=== PATIENT | male | born 1970 | race American Indian/Alaskan Native ===

== ENCOUNTER → 2021-12-20 06:51 | Outpatient (CLI) | payer MEDICAID, SELFPAY ==
[2021-12-20 08:27] LABS: Add Manual Diff / Slide Review NO; Basophils Absolute Auto 100 /uL (0-100); Basophils Percent Auto 1.3 % (0-2); Eosinophils Absolute Auto 200 /uL (0-450); Eosinophils Percent Auto 2.8 % (2-4); Hematocrit 41.6 % (41-53); Hemoglobin 14.3 g/dL (13.5-17.5); Lymphocytes Absolute Auto 1700 /uL (1100-4500); Lymphocytes Percent Auto 28.3 % (25-40); Mean Corpuscular HGB Conc 34.5 % (30-36); Mean Corpuscular Hemoglobin 30.5 PG (26-34); Mean Corpuscular Volume 88.4 fL (80-100); Monocytes Absolute Auto 500 /uL (0-900); Monocytes Percent Auto 8.4 % (3-14); Neutrophils Absolute Auto 3500 /uL (1500-7000); Neutrophils Percent Auto 59.2 % (50-75); Platelet Count 192 X10^3/uL (150-400)
[2021-12-20 08:35] LABS: Alanine Aminotransferase 25 IU/L (<50); Albumin 4.4 g/dL (3.5-5.0); Albumin Globulin Ratio 1.4 (1.0-2.8); Alkaline Phosphatase 84 U/L (38-126); Aspartate Aminotransferase 27 IU/L (17-59); BUN Creatinine Ratio 13.8 (6-22); Bilirubin Total 0.6 mg/dL (0.2-1.3); Blood Urea Nitrogen 12 mg/dL (9-20); Calcium 8.8 mg/dL (8.4-10.2); Carbon Dioxide 26 mmol/L (22-32); Chloride 106 mmol/L (98-107); Cholesterol 166 mg/dL (140-199); Estimated Glomerular Filt Rate > 60 mL/min (>60); Globulin 3.2 g/dL (1.7-4.1); Glucose 108 mg/dL (70-100); HDL Cholesterol 35 mg/dL (40-60); HEMOLYSIS < 15 (0-50); LDL Cholesterol Calculated 92 mg/dL (<100); Magnesium 2.2 mg/dL (1.6-2.3); Potassium 4.4 mmol/L (3.4-5.1); Sodium 139 mmol/L (137-145); Total Protein 7.6 g/dL (6.3-8.2); Triglycerides 197 mg/dL (35-150)
[2021-12-20 09:04] LABS: TSH w/ Reflex to FT4 0.77 uIU/mL (0.47-4.68)
== END ==
PROVIDERS: PCP Physician Assistant; Referring Provider Physician Assistant; Visit Provider Physician Assistant
DX: R00.2 Palpitations (principal); E78.5 Hyperlipidemia, unspecified
CPT/HCPCS: 36415; 80053; 80061; 83735; 84443; 85025

== ENCOUNTER 2022-04-26 13:48 | Emergency (ER) | payer OTHER, SELFPAY ==
[2022-04-26 14:12] VITALS: BP 135/77; PULSE 75; RESP 18; TEMP 36.6; O2SAT 99; BMI 35.3
--- NOTE | 2022-04-26 20:10 | ED_ITS ---
HPI - URI/Sore Throat <JOS Baldwin - Last Filed: 04/26/22 20:13> General Chief Complaint: Upper Respiratory Symptoms Stated Complaint: Burning in Sinus, congestion Time Seen by Provider: 04/26/22 16:01 Source: patient Mode of arrival: Ambulatory History of Present Illness HPI Narrative: This is a 51-year-old male presents to the emergency department complaining of sinus tenderness, congestion, and states that this is most likely a sinus infection and he is had these symptoms for the last 10 days. He denies fever and chills but states that he is sinuses are congested and he has facial pain. He is not a smoker, states he has not tried Flonase or other medications. Denies any cough or productive cough, denies fever or chills. Related Data Previous Rx's Medication Instructions Recorded amoxicillin 875 mg-potassium 1 tab PO BID 7 days #14 tabs 04/26/22 clavulanate 125 mg tablet fluticasone propionate 50 1 spray intranasal DAILY PRN nasal 04/26/22 mcg/actuation nasal congestion #16 grams spray,suspension Allergies Allergy/AdvReac Type Severity Reaction Status Date / Time No Known Drug Allergies Allergy Unverified 11/09/21 12:25 Review of Systems <JOS Baldwin - Last Filed: 04/26/22 20:13> Review of Systems Narrative: Review of systems is negative for acute abnormalities unless otherwise noted in HPI Patient History <JOS Baldwin - Last Filed: 04/26/22 20:13> Social History Smoking Status: Current some day smoker Smoking Status: Current some day smoker tobacco type: cigarettes alcohol intake frequency: holidays/special occasions only Exam <JOS Baldwin - Last Filed: 04/26/22 20:13> Narrative Exam Narrative: Reviewed vitals signs and nursing notes. General: cooperative, comfortable, in no acute distress, well groomed HEENT: symmetrical facial expressions, moist mucous membranes, nares are patent, tenderness over frontal and maxillary sinuses, posterior pharynx without erythema, uvula is midline, Cardiovascular: regular rate and rhythm, no peripheral edema, warm extremities Respiratory: normal effort, able to speak in complete sentences, without wheezing, stridor, or abnormal breath sounds. No retractions or tachypnea. Skin: brisk capillary refill, without pallor or erythema Neuro: normal speech and cognition, A&O x3, ambulatory, clear speech Psych: mental status is grossly normal, congruent mood, normal affect, pleasant and cooperative Initial Vital Signs Initial Vital Signs: Vital Signs Temperature 97.8 F 04/26/22 14:12 Pulse Rate 75 04/26/22 14:12 Respiratory Rate 18 04/26/22 14:12 Blood Pressure 135/77 04/26/22 14:12 Pulse Oximetry 99 04/26/22 14:12 Oxygen Delivery Method 04/26/22 14:12 <Carie Tomlinson MD - Last Filed: 04/29/22 08:34> Initial Vital Signs Initial Vital Signs: Vital Signs Temperature 97.8 F 04/26/22 14:12 Pulse Rate 75 04/26/22 14:12 Respiratory Rate 18 04/26/22 14:12 Blood Pressure 135/77 04/26/22 14:12 Pulse Oximetry 99 04/26/22 14:12 Oxygen Delivery Method 04/26/22 14:12 Course <JOS Baldwin - Last Filed: 04/26/22 20:13> Vital Signs Vital signs: Vital Signs - 8 hr 04/26/22 14:12 Temperature 97.8 F Pulse Rate 75 Respiratory Rate 18 Blood Pressure 135/77 Pulse Oximetry 99 Oxygen Delivery Method Room Air <Carie Tomlinson MD - Last Filed: 04/29/22 08:34> Vital Signs Vital signs: Vital Signs - 8 hr 04/26/22 14:12 Temperature 97.8 F Pulse Rate 75 Respiratory Rate 18 Blood Pressure 135/77 Pulse Oximetry 99 Oxygen Delivery Method Room Air MDM - URI/Sore Throat <JOS Baldwin - Last Filed: 04/26/22 20:13> MDM Narrative Medical decision making narrative: This is a 51-year-old male presents to the emergency department complaining of 10 days congestion, now states that he has sinus pain. He had tenderness over his maxillary and frontal sinuses, nares are patent, patient has history of sinusitis. He was prescribed fluticasone and Augmentin for sinusitis. Encourage patient to stay hydrated, use ibuprofen or Tylenol as needed for pain, saline nasal spray, encouraged him to follow-up with primary care provider or return to the emergency department if he does not have any improvement. Patient is appropriate and amenable to discharge home. Vital signs are stable on repeat examination is unremarkable. Patient has been informed of results. Patient has been given strict return to ER precautions for any new or worsening symptoms. Patient understands to follow up closely with outpatient providers as instructed. Patient understands plan and agrees to discharge home. All que stions and concerns answered at this time. #331 & 332: Antibiotic use with Sinusitis *if the second, third, or fourth prompt is selected, only then should the clinician see the sub-prompts addressing amoxicillin [] The patient has sinusitis and antibiotics are not indicated/not prescribed at this time. [SATISFIES MIPS PERFORMANCE] [x] The patient has sinusitis with symptom onset greater than 10 days ago and the patient was prescribed antibiotics. [SATISFIES MIPS PERFORMANCE] [x] Patient was prescribed an amoxicillin-based antibiotic. [] Patient was prescribed a non amoxicillin-based antibiotic because [] (ex. allergy, intolerance, secondary infection like Acute Pharyngitis, Cellulitis, UTI) [] Patient was prescribed a non amoxicillin-based antibiotic. [] The patient has sinusitis and was prescribed antibiotics because [] (ex. patient?s symptoms worsened after initial improvement, patient has secondary infection, patient is immunocompromised) [MIPS PERFORMANCE EXCEPTION/EXCLUSION] [] Patient was prescribed an amoxicillin-based antibiotic. [] Patient was prescribed a non amoxicillin-based antibiotic because [] (ex. allergy, intolerance, secondary infection like Acute Pharyngitis, Cellulitis, UTI) [] Patient was prescribed a non amoxicillin-based antibiotic. [] The patient has sinusitis with symptom onset less than or equal to 10 ago days and antibiotics WERE prescribed. [DOES NOT SATISFY MIPS PERFORMANCE] [] Patient was prescribed an amoxicillin-based antibiotic. [] Patient was prescribed a non amoxicillin-based antibiotic because [] (ex. allergy, intolerance, secondary infection like Acute Pharyngitis, Cellulitis, UTI) [] Patient was prescribed a non amoxicillin-based antibiotic. Discharge Plan Departure Patient Disposition: Home Clinical Impression: Sinusitis Qualifiers: Sinusitis location: frontal Chronicity: acute Recurrence: non-recurrent Qualified Code(s): J01.10 - Acute frontal sinusitis, unspecified Instructions: Sinusitis Activity Restrictions/Additional Instructions: *You have been diagnosed with sinusitis. Please take these antibiotics twice a day for the next 7 days, you may use saline nasal spray for hydration, 4 Flonase as needed to help reduce edema in the sinus cavity, NyQuil at nighttime to help sleep, and please stay hydrated. Follow-up with your primary care provider if you have ongoing symptoms. Return for any worsening of your condition. *What to do: *Please continue to take your regular medications as directed. [ x] New medication prescriptions sent to your pharmacy: [ [facility]] [ ] New medication written as a paper prescription [ ] No new medications given *Please follow up with your primary care provider in 2-3 days, call for an appointment. Let them know you were seen in the Emergency Department and that we asked that you be seen for follow-up. We will electronically transmit a record of today's note if your PCP is in our system *If you do not have a primary care provider please contact [phone] to establish care with one of [facility] primary care providers. *Return to Emergency Department if you should have any new, worsening, or concerning symptoms, such as [fever greater than 101F, chills, worsening pain, persistent vomiting or other bothersome symptoms]. Prescriptions: New amoxicillin-pot clavulanate 875-125 mg tablet 1 tab PO BID 7 Days Qty: 14 0RF fluticasone propionate 50 mcg/actuation spray,suspension 1 spray intranasal DAILY PRN (Reason: nasal congestion) Qty: 16 0RF Rx Instructions: administer into each nostril Referrals: Denys Escobedo, [Primary Care Provider] - Visit Report Forms: Patient Portal/API <Carie Tomlinson MD - Last Filed: 04/29/22 08:34> Cosign ED Attending Cosadanature Attestation: I was immediately available in the department for consultation throughout this patient's visit. I agree with documentation as above. Carie Tomlinson MD
== END 2022-04-26 16:24 | disposition home or self-care (01) ==
PROVIDERS: Emergency Provider Nurse Practitioner Critical Care Medicine; PCP Family Medicine
DX: J01.10 Acute frontal sinusitis, unspecified (principal)
CPT/HCPCS: 87635; 99281; C9803

== ENCOUNTER → 2022-07-19 16:00 | Outpatient (CLI) | payer OTHER, SELFPAY ==
[2022-07-19 20:11] LABS: COVID19 -Nasal RAPID POSITIVE (Negative)
== END ==
PROVIDERS: PCP Family Medicine; Referring Provider Family Medicine; Visit Provider Family Medicine
DX: U07.1 COVID-19 (principal)
CPT/HCPCS: 87635; C9803

== ENCOUNTER → 2022-08-24 07:06 | Outpatient (CLI) | payer MEDICAID, SELFPAY ==
[2022-08-24 08:41] LABS: Alanine Aminotransferase 29 IU/L (<50); Alkaline Phosphatase 74 U/L (38-126); Aspartate Aminotransferase 26 IU/L (17-59); BUN Creatinine Ratio 19.5 (6-22); Bilirubin Total 0.7 mg/dL (0.2-1.3); Blood Urea Nitrogen 17 mg/dL (9-20); Calcium 8.9 mg/dL (8.4-10.2); Carbon Dioxide 25 mmol/L (22-32); Chloride 105 mmol/L (98-107); Cholesterol 172 mg/dL (140-199); Estimated Glomerular Filt Rate > 60 mL/min (>60); Glucose 98 mg/dL (70-100); HDL Cholesterol 31 mg/dL (40-60); HEMOLYSIS < 15 (0-50); LDL Cholesterol Calculated 96 mg/dL (<100); Magnesium 1.9 mg/dL (1.6-2.3); Potassium 4.6 mmol/L (3.4-5.1); Sodium 140 mmol/L (137-145); Total Protein 7.2 g/dL (6.3-8.2); Triglycerides 223 mg/dL (35-150)
[2022-08-24 09:15] LABS: TSH w/ Reflex to FT4 1.05 uIU/mL (0.47-4.68)
[2022-08-24 12:34] LABS: Creatinine Urine Random 96.5 mg/dL
[2022-08-24 13:58] LABS: Microalbumin Urine Random < 0.6 mg/dL (0-1.6)
[2022-08-25 17:06] LABS: Albumin 4.3 g/dL (3.5-5.0); Albumin Globulin Ratio 1.5 (1.0-2.8); Globulin 2.9 g/dL (1.7-4.1)
== END ==
PROVIDERS: PCP Family Medicine; Referring Provider Family Medicine; Visit Provider Family Medicine
DX: R00.2 Palpitations (principal); Z13.29 Encounter for screening for other suspected endocrine disorder; I10 Essential (primary) hypertension; E78.5 Hyperlipidemia, unspecified
CPT/HCPCS: 36415; 80053; 80061; 82043; 82570; 83735; 84443

== ENCOUNTER 2022-12-19 13:27 | Day surgery (SDC) | payer OTHER, SELFPAY ==
[2022-12-19 13:47] VITALS: BP 120/73; PULSE 74; RESP 17; TEMP 36; O2SAT 98
[2022-12-19] MEDS: LACTATED RINGERS 1,000 ML 120 ML IV (13:53)
--- NOTE | 2022-12-19 14:38 | P.HP_ITS ---
History of Present Illness History of Present Illness Date Patient Seen: 12/19/22 Time Patient Seen: 14:38 Chief complaint: Screening Colonoscopy Narrative: The patient presents for colorectal screening. They have never had any previous examination for such. No personal or family history of colon cancer. On further history denies any recent gastrointestinal symptoms. No nausea, vomiting, abdominal pain, loss of appetite, unexplained weight loss, change in bowel habits, or blood per rectum. [facility] Medical History (Updated 10/29/22 @ 19:43 by Steffi Leggett) Ankle pain (~1993) Foot pain (~1991) Hearing loss History of femur fracture Hypertension Kidney stones (~2014) Shoulder pain (~1992) Tinnitus (~1993) Vertigo (~2004) Vision disorder Family History (Updated 10/29/22 @ 19:46 by Steffi Leggett) Mother Diabetes mellitus Grandfather History of emphysema Grandmother Diabetes mellitus History of heart disease Grandmother Diabetes mellitus Social History household members: significant other Smoking Status: Current some day smoker alcohol intake: current Meds Home Medications and Allergies Home Medications Medication Instructions Recorded Confirmed Type lisinopril 20 mg tablet 20 mg PO DAILY #90 tabs 10/13/22 12/19/22 Rx Allergies Allergy/AdvReac Type Severity Reaction Status Date / Time No Known Drug Allergies Allergy Verified 12/19/22 13:39 Exam Vital Signs (past 8 hours): - 12/19/22 13:47 Temperature 96.8 F L Pulse Rate 74 Respiratory Rate 17 Blood Pressure 120/73 Pulse Oximetry 98 Oxygen Delivery Method Room Air Oxygen Delivery Method Room Air Narrative Exam Narrative: General adult man alert oriented no acute distress Abdomen soft nontender nondistended Assessment & Plan Assessment & Plan narrative: The patient requires colorectal screening and colonoscopy is recommended. Technical details were discussed. Risks, benefits, alternatives explained. Risks including but not limited to myocardial infarction, aspiration, bleeding, pain, missed lesion, incomplete examination, need for further radiographic studies, colonic perforation, and need for major abdominal surgery were discussed. All questions were answered to their satisfaction, and they are in agreement with this plan.
[2022-12-19 15:01] VITALS: BP 126/67; PULSE 74; RESP 18; TEMP 36.4; O2SAT 96
[2022-12-19 15:06] VITALS: BP 128/82; PULSE 72; RESP 10; O2SAT 97
--- NOTE | 2022-12-19 15:06 | PM.OP.COLON ---
Operative Date/Time/Diagnoses Date of procedure: 12/19/22 Time of procedure: 15:06 Pre-op diagnosis: Colorectal screening Post-op diagnosis: same Procedure & Clinicians Study performed: Colonoscopy Same procedure as scheduled: Yes Indications: Colorectal screening Surgeon: Balwinder Boogie Procedure Notes Procedure in detail: The history and physical was performed/updated and the patient is ASA class is 2. The procedure was discussed in detail with the patient. Potential risks complications including infection, bleeding, missed diagnosis, perforation, need for surgery, and were explained. Their questions were answered and informed consent was obtained. Patient was brought to the procedure room and placed standard monitoring equipment. The patient's vital signs were monitored continuously throughout the entire procedure. Prior to starting time-out was performed. The patient was placed in the left lateral recumbent position. Procedural sedation was administered by anesthesia. Examination began with a thorough inspection of the perianal area there was no evidence of fissures, fistulae, external hemorrhoids or cutaneous malignancy. The colonoscopy scope was then placed into the anal canal and was advanced to the cecum, which was identified by the ileocecal valve, the appendiceal orifice and the confluence of the taenia. The scope was then slowly withdrawn examining colon thoroughly in all directions, irrigating it of any residual stool. Unremarkable colonoscopy. No masses polyps or inflammation. The patient tolerated the procedure well. They will be discharged once criteria are met. The prep was of good/excellent quality. The withdrawl time was 6 minutes. Specimen(s): none sent Impression: Normal colonoscopy Post-procedure Recommendations: Colonoscopy in 10 years and High fiber diet Disposition: same day surgery
[2022-12-19 15:07] VITALS: BP 121/85; PULSE 66; RESP 11; TEMP 36.1; O2SAT 96
== END 2022-12-19 15:24 | disposition home or self-care (01) ==
PROVIDERS: PCP Family Medicine; Referring Provider Surgery; Visit Provider Surgery
PROC: 0DJD8ZZ Inspection of Lower Intestinal Tract, Via Natural or Artificial Opening Endoscopic (ICD-10-PCS; CPT 45378; principal; 2022-12-19 14:30)
DX: Z12.11 Encounter for screening for malignant neoplasm of colon (principal)
CPT/HCPCS: 45378; J2704

== ENCOUNTER 2024-03-14 07:10 | Emergency (ER) | payer OTHER, SELFPAY ==
[2024-03-14 07:22] VITALS: BP 138/82; PULSE 64; RESP 16; TEMP 36.4; O2SAT 98; BMI 35.9
--- NOTE | 2024-03-14 07:27 | ED_ITS ---
HPI - General Adult General Chief complaint: Upper Respiratory Symptoms Stated complaint: resp. infection Time Seen by Provider: 03/14/24 07:21 Source: patient Mode of arrival: Ambulatory Limitations: no limitations History of Present Illness HPI narrative: Otherwise healthy 53-year-old male who is here for evaluation of approximately 10-14 days of sinus congestion, nonproductive cough, runny nose. He is tried [id number] medications with minimal if any improvement. No fevers. Related Data Previous Rx's Medication Instructions Recorded lisinopril 20 mg tablet 20 mg PO DAILY #90 tabs 10/30/23 Allergies Allergy/AdvReac Type Severity Reaction Status Date / Time No Known Drug Allergies Allergy Verified 11/23/23 16:05 Review of Systems ENT Ears, Nose, Mouth, and Throat: Reports system reviewed and no additional compl aints, except as documented Respiratory Respiratory: Reports system reviewed and no additional complaints, except as documented Allergic/Immunologic Allergic/Immunologic: Reports system reviewed and no additional complaints, except as documented Patient History Medical History History of nephrolithiasis Tobacco use disorder Encounter for well adult exam without abnormal findings Vision disorder Hearing loss Shoulder pain (~1992) Foot pain (~1991) Ankle pain (~1993) Vertigo (~2004) Kidney stones (~2014) History of femur fracture Tinnitus (~1993) Hypertension Family History (Updated 10/29/22 @ 19:46 by Steffi Leggett) Mother Diabetes mellitus Grandfather History of emphysema Grandmother Diabetes mellitus History of heart disease Grandmother Diabetes mellitus Social History household members: significant other Smoking Status: Current some day smoker alcohol intake: current Smoking Status: Current some day smoker tobacco type: cigarettes alcohol intake frequency: a few times a week Exam Initial Vital Signs Initial Vital Signs: Vital Signs Temperature 97.6 F 03/14/24 07:22 Pulse Rate 64 03/14/24 07:22 Respiratory Rate 16 03/14/24 07:22 Blood Pressure 138/82 03/14/24 07:22 Pulse Oximetry 98 03/14/24 07:22 Oxygen Delivery Method Room Air 03/14/24 07:22 HENMT Head: normal to inspection and normocephalic Mouth: moist mucous membranes Throat: posterior oropharynx normal Resp Effort & Inspection: normal respiratory effort Auscultation: clear to auscultation bilaterally Cardio Rate: regular rate Skin General: no rashes or lesions noted Neuro General: patient alert, patient awake and moves all extremities Extrem General: capillary refill normal Course Orders Ordered: ED Orders 03/14/24 07:32 XR chest 1V Stat Vital Signs Vital signs: Vital Signs - 8 hr 03/14/24 07:22 Temperature 97.6 F Pulse Rate 64 Respiratory Rate 16 Blood Pressure 138/82 Pulse Oximetry 98 Oxygen Delivery Method Room Air Medical Decision Making Imaging Data Chest x-ray: Radiologist's Impression: PROCEDURE: XR CHEST 1V INDICATIONS: evl for PNA TECHNIQUE: One view of the chest was acquired. COMPARISON: None. FINDINGS: Surgical changes and devices: None. Lungs and pleura: Lungs are clear. No pleural effusions or pneumothorax. Mediastinum: Mediastinal contours appear normal. Heart size is normal. Bones and chest wall: No suspicious bony lesions. Overlying soft tissues appear unremarkable. IMPRESSION: No acute cardiopulmonary abnormality is seen. MDM Narrative Medical decision making narrative: No signs of pneumonia on the chest x-ray. Has an obvious upper respiratory infection that is viral in origin. Low suspicion for bacterial cause. No indication for antibiotics. Discuss this with the patient. Discussed treatment that he could try at home. He was given return precautions. He expressed understanding and agreement. Discharge Plan Departure Patient Disposition: Home Clinical Impression: Upper respiratory infection Instructions: DI for Viral Upper Respiratory Infection -- Adult Activity Restrictions/Additional Instructions: You can continue with the [id number] cough and cold preparations. You can also consider taking a antihistamine such as Claritin or Zyrtec but you can also purchase [id number]. Return to the emergency department for new or worse dennise symptoms. Prescriptions: No Action lisinopril 20 mg tablet 20 mg PO DAILY Qty: 90 3RF Referrals: Denys Escobedo DO [Primary Care Provider] - Stand Alone Forms: Patient Portal/API
--- NOTE | 2024-03-14 07:32 | DI.RAD.S_ITS ---
PROCEDURE: XR CHEST 1V INDICATIONS: evl for PNA TECHNIQUE: One view of the chest was acquired. COMPARISON: None. FINDINGS: Surgical changes and devices: None. Lungs and pleura: Lungs are clear. No pleural effusions or pneumothorax. Mediastinum: Mediastinal contours appear normal. Heart size is normal. Bones and chest wall: No suspicious bony lesions. Overlying soft tissues appear unremarkable. IMPRESSION: No acute cardiopulmonary abnormality is seen. Dictated by: David Torres M.D. on 03/14/2024 at 8:23 Approved by: David Torres M.D. on 03/14/2024 at 8:24
== END 2024-03-14 08:39 | disposition home or self-care (01) ==
PROVIDERS: Emergency Provider Emergency Medicine; PCP Family Medicine
DX: J06.9 Acute upper respiratory infection, unspecified (principal)
CPT/HCPCS: 71045; 99283

== ENCOUNTER 2024-03-24 19:10 | Emergency (ER) | payer OTHER, SELFPAY ==
[2024-03-24 19:24] VITALS: BP 136/76; PULSE 79; RESP 18; TEMP 36.4; O2SAT 96; BMI 35.9
--- NOTE | 2024-03-24 19:30 | DI.RAD.S_ITS ---
PROCEDURE: XR CHEST 2V INDICATIONS: cough TECHNIQUE: 2 views of the chest were acquired. COMPARISON: [facility], CR, XR CHEST 1V, 03/14/2024, 7:44. FINDINGS: Surgical changes and devices: None. Lungs and pleura: Lungs are clear. No pleural effusions or pneumothorax. Mediastinum: Mediastinal contours are normal. Heart size is normal. Bones and chest wall: No suspicious bony abnormalities. Soft tissues appear unremarkable. IMPRESSION: No acute pulmonary process. Dictated by: Rain Craig M.D. on 03/24/2024 at 20:20 Approved by: Rain Craig M.D. on 03/24/2024 at 20:21
== END 2024-03-24 22:42 | disposition left against medical advice (07) ==
PROVIDERS: Emergency Provider Emergency Medicine; PCP Family Medicine
DX: R05.9 Cough, unspecified (principal)
CPT/HCPCS: 71046; 99281

== ENCOUNTER → 2024-12-04 07:52 | Outpatient (CLI) | payer OTHER, SELFPAY ==
[2024-12-04 09:22] LABS: Creatinine Urine Random 119.29 mg/dL
[2024-12-04 09:28] LABS: Microalbumin Urine Random 5.5 mg/dL (0-1.6)
[2024-12-04 09:38] LABS: Alanine Aminotransferase 30 IU/L (<50); Albumin 4.3 g/dL (3.5-5.0); Albumin Globulin Ratio 1.9 (1.0-2.8); Alkaline Phosphatase 74 U/L (38-126); Aspartate Aminotransferase 25 IU/L (17-59); Bilirubin Total 0.6 mg/dL (0.2-1.3); Blood Urea Nitrogen 15 mg/dL (9-20); Carbon Dioxide 22 mmol/L (22-32); Chloride 107 mmol/L (98-107); Cholesterol 141 mg/dL (140-199); Estimated Glomerular Filt Rate > 60 mL/min (>60); Globulin 2.3 g/dL (1.7-4.1); Glucose 101 mg/dL (70-99); HDL Cholesterol 27 mg/dL (40-60); HEMOLYSIS < 15 (0-50); LDL Cholesterol Calculated 72 mg/dL (<100); Sodium 137 mmol/L (137-145); Total Protein 6.6 g/dL (6.3-8.2); Triglycerides 208 mg/dL (35-150)
== END ==
LOC: LAB 07:53
PROVIDERS: PCP Family Medicine; Referring Provider Family Medicine; Visit Provider Family Medicine
DX: I10 Essential (primary) hypertension (principal); E78.00 Pure hypercholesterolemia, unspecified; Z87.442 Personal history of urinary calculi
CPT/HCPCS: 36415; 80053; 80061; 82043; 82570

== ENCOUNTER 2025-02-24 12:24 | Emergency (ER) | payer OTHER, SELFPAY ==
[2025-02-24 12:29] VITALS: BP 133/79; PULSE 72; RESP 16; TEMP 36.6; O2SAT 97; BMI 36.6
--- NOTE | 2025-02-24 13:11 | DI.RAD.S_ITS ---
PROCEDURE: XR FOOT LT MIN 3V INDICATIONS: ?rfx, ?gout TECHNIQUE: 3 views of the foot were acquired. COMPARISON: None. FINDINGS: Bones: No fractures or dislocations. No suspicious bony lesions. Focal degenerative change can be seen involving the 1st metatarsophalangeal joint, with focal joint space narrowing, with associated subchondral sclerosis and osteophyte formation. Milder degenerative changes are seen elsewhere. Plantar and Achilles calcaneal spurs are seen. . Incidental note is made of an accessory ossicle, an os peroneum. Soft tissues: Mild soft tissue swelling is seen distally and medially. IMPRESSION: Focal degenerative change can be seen involving the 1st metatarsophalangeal joint, with milder degenerative changes seen elsewhere Dictated by: Ronaldo Cuello M.D. on 02/24/2025 at 12:50 Approved by: Ronaldo Cuello M.D. on 02/24/2025 at 12:51
[2025-02-24 14:17] VITALS: BP 132/66; PULSE 62; RESP 14; O2SAT 98
--- NOTE | 2025-02-24 18:19 | ED.EXTPRO ---
HPI - Extremity Problem <Gorge Alexander PA-C - Last Filed: 02/24/25 18:23> General Chief complaint: Extremity Problem,Nontraumatic Stated complaint: Lt foot pain, x3days Time Seen by Provider: 02/24/25 12:41 Source: patient Mode of arrival: Ambulatory History of Present Illness HPI Narrative: 54-year-old male presents to the ED with 3 days of pain to the base of the left big toe. No fever, chills, trauma. No numbness, tingling, weakness. No prior history of gout. Patient is limping due to pain, however is able to bear weight and walk. Related Data Previous Rx's ?Medication ?Instructions ?Recorded lisinopril 10 mg tablet 10 mg PO DAILY #90 tabs 12/04/24 bupropion HCl 150 mg 24 hr tablet, 150 mg PO QAM #90 tabs 12/19/24 extended release bupropion HCl 75 mg tablet 75 mg PO DAILY #7 tabs 12/19/24 methylprednisolone 4 mg tablets in See Rx Instructions PO .COMPLEX 02/24/25 a dose pack (Medrol (Tim)) #21 ea Allergies Allergy/AdvReac Type Severity Reaction Status Date / Time No Known Drug Allergies Allergy Verified 12/19/24 15:42 Review of Systems <Gorge Alexander PA-C - Last Filed: 02/24/25 18:23> Constitutional Constitutional: Denies chills, Denies fatigue, Denies fever(s), Denies frequent falls, Denies lethargy and Denies weakness Eyes Eyes: Denies change in vision, Denies eye discharge, Denies irritation and Denies loss of vision ENT Ears, Nose, Mouth, and Throat: Denies change in voice, Denies dizziness, Denies neck pain, Denies sore throat and Denies throat swelling Cardiovascular Cardiovascular: Denies chest pain, Denies irregular heart rhythm, Denies lightheadedness, Denies palpitations, Denies dyspnea, Denies dyspnea on exertion and Denies orthopnea Respiratory Respiratory: Denies cough, Denies dyspnea, Denies dyspnea on exertion and Denies wheezing Gastrointestinal Gastrointestinal: Denies abdominal pain, Denies change in bowel habits, Denies diarrhea, Denies nausea and Denies vomiting Musculoskeletal Musculoskeletal: Denies neck pain and Denies numbness Comments: Left big toe pain Integumentary/Breasts Skin/Breast: Denies pruritus, Denies erythema, Denies rash and Denies wounds Neurologic Neurologic: Denies behavioral changes, Denies confusion, Denies dizziness, Denies frequent falls, Denies loss of vision, Denies numbness and Denies weakness Psychiatric Psychiatric: Denies anxiety, Denies behavioral changes, Denies confusion, Denies depression, Denies homicidal ideation and Denies suicidal ideation Endocrine Endocrine: Denies fatigue, Denies flushing and Denies palpitations Hematologic/Lymphatic Hematologic/Lymphatic: Denies easy bruising Allergic/Immunologic Allergic/Immunologic: Denies urticaria, Denies throat swelling and Denies wheezing Patient History <Gorge Alexander PA-C - Last Filed: 02/24/25 18:23> Medical History Prediabetes Acute maxillary sinusitis History of nephrolithiasis Tobacco use disorder Encounter for well adult exam without abnormal findings Vision disorder Hearing loss Shoulder pain (~1992) Foot pain (~1991) Ankle pain (~1993) Vertigo (~2004) Kidney stones (~2014) History of femur fracture Tinnitus (~1993) Hypertension Family History Mother Diabetes mellitus Grandfather History of emphysema Grandmother Diabetes mellitus History of heart disease Grandmother Diabetes mellitus Social History household members: significant other Smoking Status: Current every day smoker alcohol intake: current Smoking Status: Current every day smoker tobacco type: cigarettes alcohol intake frequency: a few times a week Exam <Gorge Alexander PA-C - Last Filed: 02/24/25 18:23> Narrative Exam Narrative: Const General:?cooperative, healthy appearing and comfortable [facility] Head:?normal to inspection Ears:?hearing grossly normal bilaterally Nose:?external nose normal Face and sinus:?normal facial exam and sinuses nontender Mouth:?oral mucosae normal Throat:?posterior oropharynx normal Eyes General:?appearance normal, both eyes and all related structures Neck Neck:?normal visual inspection and no lymphadenopathy noted Resp Effort & Inspection:?normal respiratory effort Auscultation:?clear to auscultation bilaterally Cardio Rate:?regular rate Rhythm:?regular rhythm Musculoskeletal Base of left big toe appears erythematous, swollen, warm, tender to touch. Skin is intact. Patient is neurovascularly intact. Able to bear weight and walk, although limping due to pain Neuro General:?patient alert, patient awake and patient oriented x3 Initial Vital Signs Initial Vital Signs: Vital Signs Temperature 97.8 F 02/24/25 12:29 Pulse Rate 72 02/24/25 12:29 Respiratory Rate 16 02/24/25 12:29 Blood Pressure 133/79 02/24/25 12:29 Pulse Oximetry 97 02/24/25 12:29 Oxygen Delivery Method Room Air 02/24/25 12:29 <Johnson Sumner MD - Last Filed: 02/24/25 19:15> Initial Vital Signs Initial Vital Signs: Vital Signs Temperature 97.8 F 02/24/25 12:29 Pulse Rate 72 02/24/25 12:29 Respiratory Rate 16 02/24/25 12:29 Blood Pressure 133/79 02/24/25 12:29 Pulse Oximetry 97 02/24/25 12:29 Oxygen Delivery Method Room Air 02/24/25 12:29 Course <Gorge Alexander PA-C - Last Filed: 02/24/25 18:23> Orders Ordered: ED Orders 02/24/25 13:11 XR foot LT min 3V Stat Vital Signs Vital signs: Vital Signs - 8 hr 02/24/25 12:29 02/24/25 14:17 Temperature 97.8 F Pulse Rate 72 62 Respiratory Rate 16 14 Blood Pressure 133/79 132/66 Pulse Oximetry 97 98 Oxygen Delivery Method Room Air Room Air <Johnson Sumner MD - Last Filed: 02/24/25 19:15> Orders Ordered: ED Orders 02/24/25 13:11 XR foot LT min 3V Stat Vital Signs Vital signs: Vital Signs - 8 hr 02/24/25 12:29 02/24/25 14:17 Temperature 97.8 F Pulse Rate 72 62 Respiratory Rate 16 14 Blood Pressure 133/79 132/66 Pulse Oximetry 97 98 Oxygen Delivery Method Room Air Room Air MDM - Extremity (Nontraumatic) <Gorge Alexander PA-C - Last Filed: 02/24/25 18:23> MDM Narrative Medical decision making narrative: 54-year-old male presents to the ED with 3 days of pain to the base of the left big toe. X-ray was obtained to rule out fracture/dislocation. Focal degenerative changes can be seen involving the 1st metatarsophalangeal joint, with mild degenerative changes seen elsewhere. Patient's symptoms are most consistent with a gout flare. Prescribed prednisone. Recommend taking ibuprofen for the next 3-5 days. Counseled patient on dietary restrictions including red meats, shellfish, alcohol, sugary drinks. Recommend follow-up with PCP as soon as possible. ED return precautions discussed with patient. Patient verbalized understanding. Medical records reviewed: Yes <Johnson Sumner MD - Last Filed: 02/24/25 19:15> [facility] Narrative Medical decision making narrative: 54-year-old male presents to the ED with 3 days of pain to the base of the left big toe. X-ray was obtained to rule out fracture/dislocation. Focal degenerative changes can be seen involving the 1st metatarsophalangeal joint, with mild degenerative changes seen elsewhere. Patient's symptoms are most consistent with a gout flare. Prescribed prednisone. Recommend taking ibuprofen for the next 3-5 days. Counseled patient on dietary restrictions including red meats, shellfish, alcohol, sugary drinks. Recommend follow-up with PCP as soon as possible. ED return precautions discussed with patient. Patient verbalized understanding. Medical records reviewed: Yes I was available for consult but did not actually see the patient. Discharge Plan Departure Patient Disposition: Home Clinical Impression: Gout Qualifiers: Gout site: toe Gout etiology: unspecified cause Chronicity: acute Laterality: left Qualified Code(s): M10.9 - Gout, unspecified Instructions: DI for Gout Activity Restrictions/Additional Instructions: You were evaluated in the emergency department today for left toe pain. Your x-ray did not show any fractures or dislocations. It appears that your symptoms are most consistent with gout. You are being prescribed a course of prednisone which has been sent to the [facility] [place]. Please also take 800 mg of ibuprofen every 8 hours with food for the pain. It is recommended that you reduce consuming red meat and shellfish, alcohol, sugar sweetened beverages, since they can all worsen a gout flare. Please follow-up with your primary care provider as soon as possible. Return to the ED if you have worsening symptoms, numbness, tingling, weakness. Prescriptions: New methylprednisolone [Medrol (Tim)] 4 mg tablets,dose pack See Rx Instructions .ROUTE .COMPLEX Qty: 21 0RF Rx Instructions: for 6 days No Action lisinopril 10 mg tablet 10 mg PO DAILY Qty: 90 3RF bupropion HCl 75 mg tablet 75 mg PO DAILY Qty: 7 0RF Rx Instructions: Take this prescription 1st bupropion HCl 150 mg tablet extended release 24 hr 150 mg PO QAM Qty: 90 1RF Rx Instructions: Take this prescription 2nd Referrals: Denys Escobedo DO [Primary Care Provider, Family Practice] Stand Alone Forms: Patient Portal/API
== END 2025-02-24 14:18 | disposition home or self-care (01) ==
PROVIDERS: Emergency Provider Student in an Organized Health Care Education/Training Program; PCP Family Medicine
DX: M10.9 Gout, unspecified (principal)
CPT/HCPCS: 73630; 99281; 99283